=== PATIENT | male | born 1945 | race African-American/Black ===

== ENCOUNTER 2018-01-24 22:02 | Inpatient (IN) | payer OTHER ==
[~2018-01-24] VITALS: Ht 170.2 cm; Wt 101.5 kg
[~2018-01-24 22:02] MED LIST: ANTIVERT12.5 MG PO; ARICEPT5 MG PO; CINNAMON BARK500 MG PO; CRESTOR40 MG PO; FLOMAX0.4 MG PO; FLONASE ALLERG9.9 ML BOTH NARES; IRON325 M1 PO; LEXAPRO20 MG PO; MAXZIDE 37.5 M1 EACH PO; METFORMIN HCL500 MG PO; MULTIVITAMIN1 EAC2 PO; PRILOSEC20 MG PO; SAW PALMETTO500 MG PO; VASOTEC20 MG PO; VIAGRA100 MG PO; VOLTAREN 1% GE100 GM TP; VOLTAREN75 MG PO; WELLBUTRIN100 MG PO; [UNRECOGNIZED DRUG - CODE] TP
[2018-01-25 08:28] VITALS: BP 160/81
[2018-01-25 16:12] VITALS: BP 177/93
[2018-01-25 20:20] VITALS: BP 135/91
[2018-01-26 00:28] VITALS: BP 138/92
[2018-01-26 04:13] VITALS: BP 147/77
[2018-01-26 04:53] LABS: HEMATOCRIT 26.8 % (38.0-50.0); HEMOGLOBIN 8.1 G/DL (12.5-16.6); MCV 67.8 FL (86-99)
[2018-01-26 05:06] LABS: CHLORIDE 102 mEq/L (99-109); POTASSIUM 4.7 mEq/L (3.7-5.4); SODIUM 139 mEq/L (136-147)
[2018-01-26 05:07] LABS: GLUCOSE 161 mg/dL (70-99)
[2018-01-26 05:11] LABS: CREATININE 1.5 mg/dL (0.6-1.3); GFR ESTIMATE (CALCULATED) > 59 mL/min/ (58.99-99999)
[2018-01-26 05:12] LABS: UREA NITROGEN (BUN) 17 mg/dL (9-23)
[2018-01-26 08:29] VITALS: BP 179/84
[2018-01-26 12:29] VITALS: BP 145/67
[2018-01-26 15:53] VITALS: BP 161/73
[2018-01-26 19:46] VITALS: BP 160/75
[2018-01-27] VITALS (11 sets, daily range): BP systolic 10–130; BP diastolic 52–63
[2018-01-27 05:35] LABS: HEMATOCRIT 23.7 % (38.0-50.0); HEMOGLOBIN 7.1 G/DL (12.5-16.6); MCV 66.9 FL (86-99)
[2018-01-27 06:54] LABS: BASE EXCESS -0.4 mEq/L (-3 to +3); BICARBONATE 24.9 mEq/L (22-26); CARBOXY HGB 1.7 % (0-5); COMMENTS - BLOOD GASES A+C+; METHEMOGLOBIN 0.9 % (0-1.5); PCO2 43 mm Hg (35-45); PO2 80 mm Hg (80-100); SITE RR; pH 7.37 (7.35-7.45)
[2018-01-27 06:55] LABS: DEVICE NC; O2 FLOW 2 L/MIN; TOTAL RESP RATE 22 resp/min
[2018-01-27 07:12] LABS: HEMATOCRIT 25.3 % (38.0-50.0); MCH 21.2 PG (29.0-34.0); MCHC 31.6 G/DL (30.0-36.0); MCV 67.1 FL (86-99); PLATELET COUNT 176 K/uL (156-360); RBC DIS.WIDTH-CV 19.4 % (11.8-14.6); RED BLOOD COUNT 3.77 M/uL (4.00-5.50); WHITE BLOOD COUNT 16.2 K/uL (4.1-10.2)
[2018-01-27 07:23] LABS: ALBUMIN 3.6 G/DL (3.2-4.8); CHLORIDE 99 MEQ/L (99-109); DIRECT BILIRUBIN 0.1 mg/dL (0.0-0.3); SODIUM 134 MEQ/L (136-147); TOTAL BILIRUBIN 0.5 MG/DL (0.0-1.0)
[2018-01-27 07:24] LABS: POTASSIUM 3.6 MEQ/L (3.7-5.4)
[2018-01-27 07:28] LABS: ALKALINE PHOSPHATASE 40 IU/L (3-129); ALT (GPT) 7 IU/L (3-49); AST (GOT) 12 IU/L (2-34); CREATININE 1.4 MG/DL (0.6-1.3); GFR ESTIMATE (CALCULATED) > 59 mL/min/ (58.99-99999); GLUCOSE 163 mg/dL (70-99); LIPASE 33 U/L (1.0-51.0); PHOSPHORUS 2.1 mg/dL (2.5-4.9); TOTAL PROTEIN 6.5 G/DL (6.4-8.3); UREA NITROGEN (BUN) 24 mg/dL (9-23)
[2018-01-27 17:52] LABS: HEMATOCRIT 20.1 % (38.0-50.0); MCH 20.3 PG (29.0-34.0); MCHC 29.9 G/DL (30.0-36.0); MCV 67.9 FL (86-99); RBC DIS.WIDTH-CV 19.5 % (11.8-14.6); RBC DIS.WIDTH-SD 47.8 % (39-53); WHITE BLOOD COUNT 8.6 K/uL (4.1-10.2)
[2018-01-27 17:59] LABS: RED BLOOD COUNT 2.96 M/uL (4.00-5.50)
[2018-01-27 18:40] LABS: BASOPHIL (%) 0.1 % (0-1); EOSINOPHIL (%) 0.1 % (0-5); HEMATOLOGY COMMENT 1 SN; IMMATURE GRANULOCYTE (%) 0.5 % (0.0-0.7); LYMPHOCYTE (%) 18.5 % (15-42); LYMPHOCYTE COUNT 1.6 K/uL (1.0-2.8); MONOCYTE (%) 10.8 % (3-12); MONOCYTE COUNT 0.9 K/uL (0-0.8); PLAT.SUFFICIENCY DECREASED; PLATELET COUNT 128 K/uL (156-360)
[2018-01-28] VITALS (10 sets, daily range): BP systolic 107–154; BP diastolic 61–77
[2018-01-28 00:41] LABS: APPEARANCE CLEAR ((CLEAR)); BILIRUBIN NEGATIVE; BLOOD NEGATIVE; COLOR YELLOW ((YELLOW)); GLUCOSE (STRIP) NEGATIVE; KETONES NEGATIVE; LEUKOCYTES NEGATIVE; NITRITE NEGATIVE; PROTEIN (STRIP) 30; SPECIFIC GRAVITY 1.019 (1.000-1.030); UCUL ADDED? NO; UROBILINOGEN 0.2 MG/DL (0.2-1.0)
[2018-01-28 06:01] LABS: BASOPHIL (%) 0.2 % (0-1); EOSINOPHIL (%) 0.5 % (0-5); HEMATOCRIT 23.5 % (38.0-50.0); HEMOGLOBIN 7.3 G/DL (12.5-16.6); IMMATURE GRANULOCYTE (%) 0.5 % (0.0-0.7); LYMPHOCYTE (%) 24.7 % (15-42); LYMPHOCYTE COUNT 2.2 K/uL (1.0-2.8); MCH 22.1 PG (29.0-34.0); MCHC 31.1 G/DL (30.0-36.0); MONOCYTE (%) 12.5 % (3-12); MONOCYTE COUNT 1.1 K/uL (0-0.8); NEUTROPHIL (%) 61.6 % (45-76); NEUTROPHIL COUNT 5.4 K/uL (1.8-6.4); RBC DIS.WIDTH-CV 21.6 % (11.8-14.6); RED BLOOD COUNT 3.31 M/uL (4.00-5.50); WHITE BLOOD COUNT 8.7 K/uL (4.1-10.2)
[2018-01-28 07:13] LABS: CHLORIDE 106 MEQ/L (99-109); CREATININE 1.4 MG/DL (0.6-1.3); GFR ESTIMATE (CALCULATED) > 59 mL/min/ (58.99-99999); MAGNESIUM 1.6 mg/dl (1.3-2.7); SODIUM 139 MEQ/L (136-147); UREA NITROGEN (BUN) 23 mg/dL (9-23)
[2018-01-28 07:19] LABS: GLUCOSE 100 mg/dL (70-99)
[2018-01-28 08:47] LABS: HEMATOCRIT 24.9 % (38.0-50.0); HEMOGLOBIN 7.7 G/DL (12.5-16.6); MCV 71.8 FL (86-99)
[2018-01-28 08:52] LABS: PLAT.SUFFICIENCY DECREASED; PLATELET COUNT 122 K/uL (156-360)
[2018-01-28 09:34] LABS: STOOL OCCULT BLD 1ST SPECIMEN NEGATIVE
[2018-01-28] MEDS ORDERED: ELIQUIS2.5 MG PO (10:43)
[2018-01-28] MEDS ORDERED: OXYCODONE HCL5 MG PO (10:43)
[2018-01-28] MEDS ORDERED: CELECOXIB200 MG PO (10:43)
[2018-01-28 17:21] LABS: FERRITIN 58 NG/ML (22-322); IRON 23 MCG/DL (35-150); TRANSFERRIN (TIBC) 203.9 mg/dL (215-380); TRANSFERRIN SATUR. 11 % (20-55)
[2018-01-28 19:40] LABS: HEMATOCRIT 27.2 % (38.0-50.0); HEMOGLOBIN 8.5 G/DL (12.5-16.6); MCV 72.3 FL (86-99)
[2018-01-29 05:51] LABS: HEMATOCRIT 25.8 % (38.0-50.0); HEMOGLOBIN 8.1 G/DL (12.5-16.6); MCH 22.7 PG (29.0-34.0); MCHC 31.4 G/DL (30.0-36.0); MCV 72.3 FL (86-99); PLATELET COUNT 163 K/uL (156-360); RBC DIS.WIDTH-CV 21.9 % (11.8-14.6); RBC DIS.WIDTH-SD 56.9 % (39-53); RED BLOOD COUNT 3.57 M/uL (4.00-5.50); WHITE BLOOD COUNT 9.3 K/uL (4.1-10.2)
[2018-01-29 08:22] VITALS: BP 130/75
[2018-01-29 15:05] VITALS: BP 151/74
== END 2018-01-29 17:48 | disposition home health service (06) | DRG 470 ==
LOC: ENRESERV 22:02 → 5SOUTH 01-25 07:32 → 2SOUTH 01-25 07:32 → 3WEST 01-25 07:32 → 2SOUTH 01-25 11:07 → 3WEST 01-25 16:39 → 2SOUTH 01-25 17:27 → ENRESERV 01-27 06:45 → 3WEST 01-27 06:48 → 5SOUTH 01-27 07:15 → ENRESERV 01-27 14:03 → 5SOUTH 01-27 14:10 → ENRESERV 01-27 14:13 → 5SOUTH 01-27 15:30 → 3EAST 01-27 16:51
PROVIDERS: Hospitalist; Orthopaedic Surgery; Physician Assistant
PROC: 0SRC0J9 Replacement of Right Knee Joint with Synthetic Substitute, Cemented, Open Approach (ICD-10-PCS; principal; 2018-01-25)
PROC: 3E0T3BZ Introduction of Anesthetic Agent into Peripheral Nerves and Plexi, Percutaneous Approach (ICD-10-PCS; 2018-01-25)
PROC: 30233N1 Transfusion of Nonautologous Red Blood Cells into Peripheral Vein, Percutaneous Approach (ICD-10-PCS; 2018-01-27)
DX: M17.11 Unilateral primary osteoarthritis, right knee (principal); D62 Acute posthemorrhagic anemia; E86.0 Dehydration; R55 Syncope and collapse; J98.11 Atelectasis; R09.02 Hypoxemia; M96.840 Postprocedural hematoma of a musculoskeletal structure following a musculoskeletal system procedure; E83.42 Hypomagnesemia; N40.0 Benign prostatic hyperplasia without lower urinary tract symptoms; K21.9 Gastro-esophageal reflux disease without esophagitis; I12.9 Hypertensive chronic kidney disease with stage 1 through stage 4 chronic kidney disease, or unspecified chronic kidney disease; E11.22 Type 2 diabetes mellitus with diabetic chronic kidney disease; N18.3 Chronic kidney disease, stage 3 (moderate); D63.1 Anemia in chronic kidney disease; D50.9 Iron deficiency anemia, unspecified; Z87.891 Personal history of nicotine dependence
CPT/HCPCS: 36600; 70450; 71045; 71250; 74176; 80048; 80069; 80076; 81003; 82272; 82728; 82803; 82948; 83540; 83605; 83690; 83735; 84466; 85014; 85018; 85025; 85027; 86235; 86850; 86900; 86901; 86920; 87040; 93005; 93971; 94799; C1713; J0131; J0171; J0690; J1170; J1815; J1885; J2250; J2405; J2795; J3475; J7030; J7050; P9016